=== PATIENT | female | born 1985 | race Hispanic/Latino ===

== ENCOUNTER 2020-10-05 16:35 | Emergency (ER) | payer SELFPAY ==
--- NOTE | 2020-10-05 17:49 | RAD REPORT ---
EXAM DESCRIPTION: RAD - Ankle Right 3 View - 10/05/2020 5:23 pm CLINICAL HISTORY: Pain;Swelling COMPARISON: No comparisons FINDINGS: Moderate soft tissue swelling is seen, greatest along the lateral malleolus. No acute frac ture or dislocation seen. Small calcaneal spurs.
--- NOTE | 2020-10-05 20:59 | ER ---
Nurse's Notes [facility] Name: Mirian Campos Age: 35 yrs Sex: Female : 1985 Arrival Date: 10/05/2020 Time: 16:36 Bed 19 Private MD: Diagnosis: Sprain of ankle Presentation: 10/05 16:55 Chief complaint: Patient states: rolled her right ankle this afternoon, now cannot bear iw weight on it. Coronavirus screen: At this time, the client does not indicate any symptoms associated with coronavirus-19. Ebola Screen: Patient negative for fever greater than or equal to 101.5 degrees Fahrenheit, and additional compatible Ebola Virus Disease symptoms Patient denies exposure to infectious person. Patient denies travel to an Ebola-affected area in the 21 days before illness onset. No symptoms or risks identified at this time. Initial Sepsis Screen: Does the patient meet any 2 criteria? No. Patient's initial sepsis screen is negative. Does the patient have a suspected source of infection? No. Patient's initial sepsis screen is negative. Risk Assessment: Do you want to hurt yourself or someone else? Patient reports no desire to harm self or others. Onset of symptoms was October 05, 2020. 16:55 Method Of Arrival: Wheelchair iw 16:55 Acuity: [place] 4 iw Historical: - Allergies: 16:57 PENICILLINS; iw - Home Meds: 16:57 None [Active]; iw - PMHx: 16:57 None; iw - PSHx: 16:57 Tubal ligation; iw - Immunization history:: Adult Immunizations. - Social history:: Smoking status: Patient reports the use of cigarette tobacco products, smokes one pack cigarettes per day. Screenin:20 Abuse screen: Denies threats or abuse. Denies injuries from another. Nutritional sf screening: No deficits noted. Tuberculosis screening: No symptoms or risk factors identified. Fall Risk Fall in past 12 months (25 points). No secondary diagnosis (0 pts). No IV (0 pts). Ambulatory Aid- None/Bed Rest/Nurse Assist (0 pts). Gait- Impaired (20 pts.). Mental Status- Oriented to own ability (0 pts). Total Stanton Fall Scale indicates Low Risk Score (25-44 pts). Assessment: 21:20 General: Appears in no apparent distress. comfortable. Pain: Complains of pain in right sf ankle. Neuro: No deficits noted. Cardiovascular: No deficits noted. Respiratory: No deficits noted. GI: No deficits noted. : No deficits noted. Musculoskeletal: Circulation, motion, and sensation intact. Capillary refill < 3 seconds, Range of motion: limited in right ankle Reports pain in right ankle. Vital Signs: 16:55 BP 124 / 72; Pulse 78; Resp 16; Temp 97.7; Pulse Ox 100% on R/A; Weight 85.73 kg; iw Height 5 ft. 1 in. (154.94 cm); 21:00 BP 110 / 64; Pulse 65; Resp 16; Pulse Ox 100% ; sf 16:55 Body Mass Index 35.71 (85.73 kg, 154.94 cm) iw ED Course: 16:36 Patient arrived in ED. as 16:56 Triage completed. iw 16:57 Arm band placed on. iw 17:23 Ankle Right 3 View XRAY In Process Unspecified. EDMS 18:10 Nadiya Jenkins FNP-C is PHCP. kb 18:10 Priyank Randhawa MD is Attending Physician. kb 20:49 Nadiya Jenkins FNP-C is PHCP. kb 20:49 Emeka Chavarria MD is Attending Physician. kb 21:00 Bucky Ellis RN is Primary Nurse. sf 21:25 Crutch training done. Air stirrup applied to right ankle. mica plate layer hand used for crutch sf training and discharge instruction (10233). 21:49 No provider procedures requiring assistance completed. Patient did not have IV access sf during this emergency room visit. Administered Medications: 21:23 Drug: Ibuprofen 800 mg Route: PO; sf Outcome: 20:58 Discharge ordered by . kb 21:50 Discharged to home via wheelchair, with crutches. sf 21:50 Condition: stable 21:50 Discharge instructions given to patient, Instructed on discharge instructions, follow up and referral plans. medication usage, crutch walking, Demonstrated understanding of instructions, follow-up care, medications, crutch walking, Prescriptions given X 1. 21:52 Patient left the ED. sf Signatures: Dispatcher [employer] EDMS Nadiya Jenkins FNP-C FNP-Delmi Flores as Mariana Gamino RN RN iw Bucky Ellis, RN RN sf
--- NOTE | 2020-10-05 20:59 | EDPHYS ---
Physician Documentation [facility] Name: Mirian Campos Age: 35 yrs Sex: Female : 1985 Arrival Date: 10/05/2020 Time: 16:36 Bed 19 Private MD: ED Physician Emeka Chavarria HPI: 10/05 20:57 This 35 yrs old Female presents to ER via Wheelchair with complaints of Ankle kb Injury. 20:57 The patient presents with decreased range of motion, an injury, pain, swelling, kb tenderness. The complaints affect the right ankle. Onset: The symptoms/episode began/occurred just prior to arrival. Context: The problem was sustained at home, resulted from rolled ankle while walking, The patient is unable to bear weight. The patient is not able to ambulate. Associated signs and symptoms: Pertinent positives: swelling. Modifying factors: The symptoms are alleviated by nothing, the symptoms are aggravated by weight bearing, movement. Severity of symptoms: At their worst the symptoms were moderate, in the emergency department the symptoms are unchanged. The patient has not experienced similar symptoms in the past. The patient has not recently seen a physician. Historical: - Allergies: 16:57 PENICILLINS; iw - Home Meds: 16:57 None [Active]; iw - PMHx: 16:57 None; iw - PSHx: 16:57 Tubal ligation; iw - Immunization history:: Adult Immunizations. - Social history:: Smoking status: Patient reports the use of cigarette tobacco products, smokes one pack cigarettes per day. ROS: 20:57 Constitutional: Negative for fever, chills, and weight loss, Skin: Negative for injury, kb rash, and discoloration, Neuro: Negative for headache, weakness, numbness, tingling, and seizure. 20:57 MS/extremity: Positive for injury or acute deformity, decreased range of motion, ecchymosis, pain, swelling, tenderness, of the right ankle. Exam: 20:56 Constitutional: This is a well developed, well nourished patient who is awake, alert, kb and in no acute distress. Head/Face: Normocephalic, atraumatic. Respiratory: Respirations even and unlabored. No increased work of breathing, no retractions or nasal flaring. Skin: Warm, dry with normal turgor. Normal color. Neuro: Awake and alert, GCS 15, oriented to person, place, time, and situation. Moves all extremities. Normal gait. 20:56 Musculoskeletal/extremity: Extremities: grossly normal except: noted in the right ankle: decreased ROM, ecchymosis, pain, swelling, tenderness, ROM: limited active range of motion due to pain, in the right ankle, Circulation is intact in all extremities. Sensation intact. Weight bearing: is unable to bear weight. Vital Signs: 16:55 BP 124 / 72; Pulse 78; Resp 16; Temp 97.7; Pulse Ox 100% on R/A; Weight 85.73 kg; iw Height 5 ft. 1 in. (154.94 cm); 21:00 BP 110 / 64; Pulse 65; Resp 16; Pulse Ox 100% ; sf 16:55 Body Mass Index 35.71 (85.73 kg, 154.94 cm) iw MDM: 20:49 Patient medically screened. kb 20:53 Data reviewed: vital signs, nurses notes. Data interpreted: Pulse oximetry: on room air kb is 100 %. Interpretation: normal. Counseling: I had a detailed discussion with the patient and/or guardian regarding: the historical points, exam findings, and any diagnostic results supporting the discharge/admit diagnosis, radiology results, the need for outpatient follow up, a orthopedic surgeon, to return to the emergency department if symptoms worsen or persist or if there are any questions or concerns that arise at home. 10/05 16:57 Order name: Ankle Right 3 View XRAY; Complete Time: 18:10 iw 10/05 20:53 Order name: Aircast Ankle Splint; Complete Time: 21:48 kb 10/05 20:53 Order name: Crutches; Complete Time: 21:48 kb Administered Medications: 21:23 Drug: Ibuprofen 800 mg Route: PO; sf Disposition: 10/06 09:57 Co-signature as Attending Physician, Emeka Chavarria MD I agree with the assessment and didi plan of care. Disposition: 10/05/20 20:58 Discharged to Home. Impression: Sprain of ankle. - Condition is Stable. - Discharge Instructions: Ankle Sprain, [id number]. - Prescriptions for Ibuprofen 800 mg Oral Tablet - take 1 tablet by ORAL route every 8 hours As needed take with food; 30 tablet. - Medication Reconciliation Form, Thank You Letter, Antibiotic Education, Prescription Opioid Use form. - Follow up: Emergency Department; When: As needed; Reason: Worsening of condition. Follow up: Private Physician; When: 2 - 3 days; Reason: Recheck today's complaints, Continuance of care, Re-evaluation by your physician. Signatures: Dispatcher [employer] EDMS Nadiya Jenkins, MAT REPAIRER-C ELIEZER-Emeka Johnson MD MD cha Williams, Irene, HORTENSIA RN Bucky Melchor RN RN sf Corrections: (The following items were deleted from the chart) 10/05 21:52 20:58 10/05/2020 20:58 Discharged to Home. Impression: Sprain of ankle. Condition is sf Stable. Forms are Medication Reconciliation Form, Thank You Letter, Antibiotic Education, Prescription Opioid Use. Follow up: Emergency Department; When: As needed; Reason: Worsening of condition. Follow up: Private Physician; When: 2 - 3 days; Reason: Recheck today's complaints, Continuance of care, Re-evaluation by your physician. kb
[2020-10-05] MEDS ORDERED: IBUPROFEN 400 MG TAB ONE (21:37)
[2020-10-05 21:58] VITALS: TEMP 97.7; O2SAT 100
[2020-10-05 21:59] VITALS: BP 110/64
== END 2020-10-05 21:52 | disposition home or self-care (01) ==
LOC: ER 16:35
DX: S93.401A Sprain of unspecified ligament of right ankle, initial encounter (principal); X58.XXXA Exposure to other specified factors, initial encounter; Y93.01 Activity, walking, marching and hiking; Y92.009 Unspecified place in unspecified non-institutional (private) residence as the place of occurrence of the external cause; Z88.0 Allergy status to penicillin; F17.210 Nicotine dependence, cigarettes, uncomplicated
CPT/HCPCS: 99284